=== PATIENT | male | born 1990 | race Caucasian/White ===

== ENCOUNTER 2018-11-17 13:55 | Emergency (ER) | payer OTHER ==
--- NOTE | 2018-11-17 15:12 | EDM.PDOC ---
ED HPI GENERAL MEDICAL PROBLEM - General Chief Complaint: Upper Extremity Injury/Pain Stated Complaint: LT PINKY FINGER INJURY Time Seen by Provider: 11/17/18 15:09 Source of Information: Reports: Patient, RN Notes Reviewed - History of Present Illness INITIAL COMMENTS - FREE TEXT/NARRATIVE: 28 yr old male had a hammer "drop and strike L small finger with resultant pain and flap laceration" Pain is worse with motion. no other area of injury. Checking on tetanus status with mother at time of my exam. Left Finger-Little Pain Score (Numeric/FACES): 6 - Related Data Allergies Allergy/AdvReac Type Severity Reaction Status Date / Time No Known Allergies Allergy Verified 11/17/18 15:09 Home Meds: Home Meds . [No Known Home Meds] 11/17/18 [History] Social & Family History - Tobacco Use Smoking Status *Q: Current Every Day Smoker Years of Tobacco use: 10 Packs/Tins Daily: 0.5 - Caffeine Use Caffeine Use: Reports: None - Recreational Drug Use Recreational Drug Use: No Review of Systems - Review of Systems Review Of Systems: See Below Constitutional: Reports: No Symptoms Respiratory: Denies: Shortness of Breath Cardiovascular: Denies: Chest Pain GI/Abdominal: Denies: Nausea, Vomiting Musculoskeletal: Reports: Joint Pain (PIP of L small finger) Skin: Reports: Other (superfiscial flap lac area of injury) Neurological: Denies: Numbness, Tingling ED EXAM, GENERAL - Physical Exam Exam: See Below General Appearance: Alert, No Apparent Distress Head: Atraumatic Neck: Supple Respiratory/Chest: No Respiratory Distress Extremities: Joint Swelling (there is mild swelling, tenderness of PIP jt of L small finger, some pain with motion at PIP joint) Neurological: No Motor/Sensory Deficits Skin Exam: Normal Color, Other (small 1 cm superfiscial flap lac area of injury medial aspect PIP jt of L small finger) Course - Vital Signs Last Recorded V/S: Last Vital Signs Temp 98.7 F 11/17/18 15:06 Pulse 73 11/17/18 15:06 Resp 18 11/17/18 15:06 BP 142/93 H 11/17/18 15:06 Pulse Ox 100 11/17/18 15:06 - Orders/Labs/Meds Orders: Active Orders 24 hr Category Date Time Status Durable Medical Equipment for Discharge [DME for Oth 11/17/18 16:22 Ordered Discharge] [COMM] Stat - Re-Assessments/Exams Free Text/Narrative Re-Assessment/Exam: 11/17/18 17:01 X rays show no fx. Lac has been washed and irrigated with NS. sutures not clinically indicated. treated with bandaid and volar aluminum finger splint. Departure - Departure Time of Disposition: 16:20 Disposition: Home, Self-Care 01 Condition: Fair Clinical Impression: Finger contusion Qualifiers: Encounter type: initial encounter Finger: little finger Damage to nail status: without damage Laterality: left Qualified Code(s): S60.052A - Contusion of left little finger without damage to nail, initial encounter Finger laceration Qualifiers: Encounter type: initial encounter Finger: little finger - Discharge Information Instructions: Contusion, [id number] Referrals: PCP,None [Primary Care Provider] - Forms: ED Department Discharge, ED Return to Work/School Form Additional Instructions: keep protected with bandaid, cling dressing as needed, use finger splint as needed for comfort and protection. Tylenol or ibuprofen as needed. Have rechecked any sign of infection. - My Orders Last 24 Hours: My Active Orders 11/17/18 16:22 Durable Medical Equipment for Discharge [DME for Discharge] [COMM] Stat - Assessment/Plan Last 24 Hours: My Active Orders 11/17/18 16:22 Durable Medical Equipment for Discharge [DME for Discharge] [COMM] Stat
--- NOTE | 2018-11-17 16:12 | CR ---
Left fifth finger: Four views of the left fifth finger were obtained. Joint spaces are preserved. No discrete fracture, dislocation or other bony abnormality is seen. Soft tissue swelling appears to be present. Impression: 1. Soft tissue swelling. No acute bony abnormality is identified on left fifth finger study. Diagnostic code #2
== END 2018-11-17 16:34 | disposition home or self-care (01) ==
LOC: JD.ED 13:55
DX: S61.217A Laceration without foreign body of left little finger without damage to nail, initial encounter (principal); F17.210 Nicotine dependence, cigarettes, uncomplicated; W20.8XXA Other cause of strike by thrown, projected or falling object, initial encounter
CPT/HCPCS: 73140-26-F4; 73140-F4; 99282; 99283-25

== ENCOUNTER 2019-06-30 13:49 | Emergency (ER) | payer SELFPAY ==
[2019-06-30] MEDS ORDERED: Sodium Chloride 0.9% 10 ML Syringe FLUSH PRN (14:38)
[2019-06-30] MEDS ORDERED: Metoclopramide 10 MG/2 ML SDV IVPUSH ONE (14:38)
[2019-06-30] MEDS ORDERED: LORazepam 2 MG/ML SDV IVPUSH ONE (14:38)
[2019-06-30] MEDS ORDERED: Sodium Chloride 0.9% 1,000 ML IV ONE ×2 (14:38→16:06)
--- NOTE | 2019-06-30 16:01 | EDM.PDOCBH ---
ED HPI GENERAL MEDICAL PROBLEM - General Chief Complaint: Drug or Alcohol Abuse Stated Complaint: AMBULANCE DICKINISIN Time Seen by Provider: 06/30/19 14:38 Source of Information: Reports: Patient, RN Notes Reviewed History Limitations: Reports: Intoxication - History of Present Illness INITIAL COMMENTS - FREE TEXT/NARRATIVE: Patient is a 28-year-old male who presents to the ED via [facility] for alcohol intoxication. Apparently the patient was found staggering in the hallway of his apartment by neighbors, and they state he was extremely intoxicated. There was 1-3/4 bottle of empty vodka found in his apartment. Patient is not able to provide much information, as he is extremely intoxicated and will not answer questions. - Related Data Allergies Allergy/AdvReac Type Severity Reaction Status Date / Time No Known Allergies Allergy Verified 11/17/18 15:09 Home Meds: Home Meds . [No Known Home Meds] 11/17/18 [History] Past Medical History - Past Health History Medical/Surgical History: Denies Medical/Surgical History Social & Family History - Caffeine Use Caffeine Use: Reports: None - Alcohol Use Alcohol Use History: Yes Alcohol Use Frequency: Daily ED ROS GENERAL - Review of Systems Review Of Systems: Unable To Obtain Reason Not Obtained: acute intoxication, patient appears in no major distress or pain ED EXAM, BEHAVIORAL HEALTH - Physical Exam Exam: See Below Exam Limited By: Intoxication General Appearance: WD/WN, No Apparent Distress Eye Exam: Bilateral Eye: EOMI, PERRL Ears: Normal External Exam Nose: Normal Inspection Throat/Mouth: Normal Inspection, Normal Lips Head: Atraumatic, Normocephalic Neck: Normal Inspection Respiratory/Chest: No Respiratory Distress, Lungs Clear, Normal Breath Sounds, No Accessory Muscle Use, Chest Non-Tender Cardiovascular: Normal Peripheral Pulses, Regular Rate, Rhythm, No Murmur GI/Abdominal: Normal Bowel Sounds, Soft, Non-Tender, No Distention, No Mass Extremities: Normal Inspection, Normal Capillary Refill Neurological: Normal Reflexes, No Motor/Sensory Deficits (grossly) Psychiatric: Other (acutely intoxicated from alcohol.) Skin Exam: Warm, Dry, Intact, Normal color, No rash COURSE, BEHAVIORAL HEALTH COMP - Course Vital Signs: Last Vital Signs Temp 97.7 F 06/30/19 13:53 Pulse 68 06/30/19 13:53 Resp 16 06/30/19 13:53 BP 132/79 06/30/19 13:53 Pulse Ox 98 06/30/19 13:53 Orders, Labs, Meds: Active Orders 24 hr Category Date Time Status Peripheral IV Care [RC] . DIRECTED Care 06/30/19 14:39 Ordered Sodium Chloride 0.9% [Saline Flush] Med 06/30/19 14:38 Ordered 10 ml FLUSH ASDIRECTED PRN Peripheral IV Insertion Adult [OM.PC] Stat Oth 06/30/19 14:39 Ordered Medication Orders Sodium Chloride (Saline Flush) 10 ml FLUSH ASDIRECTED PRN PRN Reason: Keep Vein Open Last Admin: 06/30/19 15:20 Dose: 10 ml Laboratory Tests 06/30/19 06/30/19 06/30/19 Range/Units 15:02 15:02 15:02 WBC 9.51 H (4.23-9.07) K/mm3 RBC 5.00 (4.63-6.08) M/mm3 Hgb 15.2 (13.7-17.5) gm/dl Hct 44.7 (40.1-51.0) % MCV 89.4 (79.0-92.2) fl MCH 30.4 (25.7-32.2) pg MCHC 34.0 (32.2-35.5) g/dl RDW Std Deviation 43.0 (35.1-43.9) fL Plt Count 263 (163-337) K/mm3 MPV 10.2 (9.4-12.3) fl Neut % (Auto) 63.2 (34.0-67.9) % Lymph % (Auto) 23.1 (21.8-53.1) % Nance % (Auto) 10.4 (5.3-12.2) % Eos % (Auto) 2.9 (0.8-7.0) Baso % (Auto) 0.2 (0.1-1.2) % Neut # (Auto) 6.00 H (1.78-5.38) K/mm3 Lymph # (Auto) 2.20 (1.32-3.57) K/mm3 Nance # (Auto) 0.99 H (0.30-0.82) K/mm3 Eos # (Auto) 0.28 (0.04-0.54) K/mm3 Baso # (Auto) 0.02 (0.01-0.08) K/mm3 PT 11.4 (9.7-12.0) SECONDS INR 1.05 Sodium 142 (136-145) mEq/L Potassium 3.2 L (3.5-5.1) mEq/L Chloride 105 (98-107) mEq/L Carbon Dioxide 25 (21-32) mEq/L Anion Gap 15.2 H (5-15) BUN 7 (7-18) mg/dL Creatinine 0.8 (0.7-1.3) mg/dL Est Cr Clr Drug Dosing TNP Estimated GFR (MDRD) > 60 (>60) mL/min BUN/Creatinine Ratio 8.8 L (14-18) Glucose 107 H (74-106) mg/dL Calcium 8.5 (8.5-10.1) mg/dL Magnesium 2.0 (1.8-2.4) mg/dl Total Bilirubin 0.3 (0.2-1.0) mg/dL AST 18 (15-37) U/L ALT 31 (16-63) U/L Alkaline Phosphatase 69 (46-116) U/L Total Protein 7.2 (6.4-8.2) g/dl Albumin 3.9 (3.4-5.0) g/dl Globulin 3.3 gm/dL Albumin/Globulin Ratio 1.2 (1-2) Urine Opiates Screen (NZFJTP=118) Ur Buprenorphine Scrn (CUTOFF=10) Ur Oxycodone Screen (JXT9PS=563) Urine Methadone Screen (EMH9AT=512) Ur Propoxyphene Screen (EDAUWD=066) Ur Barbiturates Screen (WNFYPH=701) Ur Tricyclics Screen (GGEXTI=989) Ur Phencyclidine Scrn (CUTOFF=25) Ur Amphetamine Screen (MPCCAI=203) U Methamphetamines Scrn (EOUEVV=017) U Benzodiazepines Scrn (DJLNXJ=513) U Cocaine Metab Screen (PBHAFO=190) U Marijuana (THC) Screen (CUTOFF=50) Ethyl Alcohol 0.32 (0.00) gm% 06/30/19 Range/Units 15:25 WBC (4.23-9.07) K/mm3 RBC (4.63-6.08) M/mm3 Hgb (13.7-17.5) gm/dl Hct (40.1-51.0) % MCV (79.0-92.2) fl MCH (25.7-32.2) pg MCHC (32.2-35.5) g/dl RDW Std Deviation (35.1-43.9) fL Plt Count (163-337) K/mm3 MPV (9.4-12.3) fl Neut % (Auto) (34.0-67.9) % Lymph % (Auto) (21.8-53.1) % Nance % (Auto) (5.3-12.2) % Eos % (Auto) (0.8-7.0) Baso % (Auto) (0.1-1.2) % Neut # (Auto) (1.78-5.38) K/mm3 Lymph # (Auto) (1.32-3.57) K/mm3 Nance # (Auto) (0.30-0.82) K/mm3 Eos # (Auto) (0.04-0.54) K/mm3 Baso # (Auto) (0.01-0.08) K/mm3 PT (9.7-12.0) SECONDS INR Sodium (136-145) mEq/L Potassium (3.5-5.1) mEq/L Chloride (98-107) mEq/L Carbon Dioxide (21-32) mEq/L Anion Gap (5-15) BUN (7-18) mg/dL Creatinine (0.7-1.3) mg/dL Est Cr Clr Drug Dosing Estimated GFR (MDRD) (>60) mL/min BUN/Creatinine Ratio (14-18) Glucose (74-106) mg/dL Calcium (8.5-10.1) mg/dL Magnesium (1.8-2.4) mg/dl Total Bilirubin (0.2-1.0) mg/dL AST (15-37) U/L ALT (16-63) U/L Alkaline Phosphatase (46-116) U/L Total Protein (6.4-8.2) g/dl Albumin (3.4-5.0) g/dl Globulin gm/dL Albumin/Globulin Ratio (1-2) Urine Opiates Screen Negative (UBRSUL=599) Ur Buprenorphine Scrn Negative (CUTOFF=10) Ur Oxycodone Screen Negative (YTH4NV=134) Urine Methadone Screen Negative (WTF3IA=779) Ur Propoxyphene Screen Negative (QWXCMQ=329) Ur Barbiturates Screen Negative (JKMSUH=894) Ur Tricyclics Screen Negative (EJJZWS=269) Ur Phencyclidine Scrn Negative (CUTOFF=25) Ur Amphetamine Screen Negative (VQCJRC=120) U Methamphetamines Scrn Negative (FHJALY=000) U Benzodiazepines Scrn Negative (FZASWC=115) U Cocaine Metab Screen Negative (ILPERH=832) U Marijuana (THC) Screen Negative (CUTOFF=50) Ethyl Alcohol (0.00) gm% Medications Generic Name Dose Route Start Last Admin Trade Name Freq PRN Reason Stop Dose Admin Sodium Chloride 10 ml 06/30/19 14:38 06/30/19 15:20 Saline Flush FLUSH 10 ml ASDIRECTED PRN Administration Keep Vein Open Discontinued Medications Generic Name Dose Route Start Last Admin Trade Name Freq PRN Reason Stop Dose Admin Sodium Chloride 1,000 mls @ 999 mls/hr 06/30/19 14:38 06/30/19 15:22 Normal Saline IV 06/30/19 15:38 999 mls/hr ONETIME ONE Administration Sodium Chloride 1,000 mls @ 999 mls/hr 06/30/19 16:06 06/30/19 16:40 Normal Saline IV 06/30/19 17:06 999 mls/hr ONETIME ONE Administration Lorazepam 1 mg 06/30/19 14:38 06/30/19 15:18 Ativan IVPUSH 06/30/19 14:39 1 mg ONETIME ONE Administration Metoclopramide HCl 10 mg 06/30/19 14:38 06/30/19 15:20 Reglan IVPUSH 06/30/19 14:39 10 mg ONETIME ONE Administration Discharge vs Psych Eval/Treatment:: 06/30/19 16:01 Patient presents to the ED for acute alcohol intoxication. He is not giving much for answering questions at this time. I have ordered IV fluids, some labs for evaluation and a blood alcohol level. His blood alcohol level was 0.37. Departure - Departure Time of Disposition: 17:00 Disposition: Home, Self-Care 01 Condition: Fair Clinical Impression: Acute alcohol intoxication Qualifiers: Complication of substance-induced condition: uncomplicated Qualified Code(s): F10.920 - Alcohol use, unspecified with intoxication, uncomplicated - Discharge Information *PRESCRIPTION DRUG MONITORING PROGRAM REVIEWED*: No *COPY OF PRESCRIPTION DRUG MONITORING REPORT IN PATIENT DELTA: No Instructions: Alcohol Intoxication, [id number] Referrals: PCP,Unknown [Primary Care Provider] - Additional Instructions: You were evaluated in the ER today regarding your acute alcohol intoxication. You were given some IV fluids, and some IV medications to help sober you up. Recommend when you go home tonight, that you try to refrain from using alcohol and try to get some fluids like Gatorade, Powerade over the next few hours, try to also eat a hearty meal as this will also help you feel better. Please return to the ER at any time if your symptoms change or worsen. Sepsis Event Note - Evaluation Sepsis Screening Result: No Definite Risk - Focused Exam Vital Signs: Vital Signs Temp Pulse Resp BP Pulse Ox 06/30/19 13:53 97.7 F 68 16 132/79 98 Date Exam was Performed: 06/30/19 Time Exam was Performed: 18:13 - My Orders Last 24 Hours: My Active Orders 06/30/19 14:38 Sodium Chloride 0.9% [Saline Flush] 10 ml FLUSH ASDIRECTED PRN 06/30/19 14:39 Peripheral IV Care [RC] . DIRECTED Peripheral IV Insertion Adult [OM.PC] Stat - Assessment/Plan Last 24 Hours: My Active Orders 06/30/19 14:38 Sodium Chloride 0.9% [Saline Flush] 10 ml FLUSH ASDIRECTED PRN 06/30/19 14:39 Peripheral IV Care [RC] . DIRECTED Peripheral IV Insertion Adult [OM.PC] Stat
== END 2019-06-30 20:03 | disposition home or self-care (01) ==
LOC: JD.ED 13:49
DX: F10.120 Alcohol abuse with intoxication, uncomplicated (principal); Y90.0 Blood alcohol level of less than 20 mg/100 ml
CPT/HCPCS: 36415; 80053; 80306; 80307; 83735; 85025; 85610; 96361; 96374; 96375; 99284; J2060; J2765; J7030; 99283